=== PATIENT | male | born 1980 | race Caucasian/White ===

== ENCOUNTER 2020-01-10 09:52 | Emergency (ER) | payer BC ==
[~2020-01-10] VITALS: Ht 185.4 cm; Wt 88.6 kg
[2020-01-10 09:59] VITALS: Ht 185.4 cm; Wt 88.6 kg
[2020-01-10] MEDS ORDERED: FISH OIL 1,0001 CA1 PO (10:00)
[2020-01-10] MEDS ORDERED: COZAAR100 MG PO (10:00)
[2020-01-10] MEDS ORDERED: TOZAL SOFTGEL1 EACH PO (10:00)
[2020-01-10] MEDS ORDERED: ASCORBIC ACID500 MG PO (10:00)
[2020-01-10 11:17] VITALS: BP 146/91
== END 2020-01-10 12:20 | disposition home or self-care (01) ==
LOC: D.ER 09:52
DX: S01.01XA Laceration without foreign body of scalp, initial encounter (principal); W22.8XXA Striking against or struck by other objects, initial encounter; Y93.9 Activity, unspecified; Y92.9 Unspecified place or not applicable; I10 Essential (primary) hypertension; S09.90XA Unspecified injury of head, initial encounter